=== PATIENT | male | born 1975 | race Hispanic/Latino ===

== ENCOUNTER 2024-08-12 20:36 | Emergency (ER) | payer MEDICAID ==
[2024-08-12 22:34] LABS: ALT (SGPT) 28 U/L (8-55); AST (SGOT) 55 U/L (5-34); Alkaline Phosphatase 172 U/L (40-110); Anion Gap 10 mmol/L (10-20); BUN (Urea Nitrogen) 13 mg/dL (8.9-20.6); Bilirubin, Total 2.8 mg/dL (0.2-1.2); CRP,High Sensitivity (Inhouse) 2.22 mg/dL (< or = 0.5); Calc. Creatinine Clearance 0 mL/min (70-130); Calcium 8.1 mg/dL (7.8-10.44); Carbon Dioxide 17 mmol/L (22-29); Chloride 108 mmol/L (98-107); Estimated GFR 106; Globulin 3.3 g/dL (2.4-3.5); Glucose 110 mg/dL (70-105); Potassium 3.9 mmol/L (3.5-5.1); Protein, Total 6.3 g/dL (6.0-8.3); Sodium 131 mmol/L (136-145)
[2024-08-12 22:45] LABS: #Basophils Less than 0.03 10x3/uL (0.0-0.2); %Eosinophils 0.9 % (0.0-10.0); %Lymphocytes 6.5 % (21.0-51.0); %Monocytes 8.3 % (0.0-10.0); %Neutrophils 84.1 % (42.0-75.0); Hematocrit 28.7 % (42.0-52.0); Hemoglobin 8.8 g/dL (14.0-18.0); Mean Corpuscular HGB CONC 30.7 g/dL (32.0-36.0); Mean Corpuscular Hemoglobin 23.3 pg (27.0-31.0); Mean Corpuscular Volume 75.9 fL (78.0-98.0); Platelet Count 45 10x3/uL (130-400); RBC Distribution Width 18.3 % (11.5-14.5); Red Blood Cell (RBC) Count 3.78 mill/uL (4.70-6.10)
[2024-08-12 23:06] LABS: Anisocytosis SLIGHT = 6-15 cells HPF (0-5); Elliptocytes SLIGHT = 2-5 cells HPF (0-1); Hypochromia SLIGHT = 6-15 cells HPF (0-5); Microcytosis SLIGHT = 6-15 cells HPF (0-5); Platelet Adequacy Comment Significant Decrease; Polychromasia SLIGHT = 2-3 cells HPF (0-2); Target Cells SLIGHT = 2-5 cells HPF (0-1)
[2024-08-13] MEDS ORDERED: Acetaminophen 500 MG TAB ONE (01:06)
[2024-08-13] MEDS ORDERED: Acetaminophen/Codeine 30-300mg Tablet ONE (01:51)
[2024-08-13] MEDS ORDERED: Ketorolac Tromethamine 30 MG (1 mL) VIAL ONE (01:51)
[2024-08-13] MEDS ORDERED: Doxycycline 100 MG CAP ONE (02:02)
== END 2024-08-13 02:28 | disposition home or self-care (01) ==
LOC: ERS 20:36
DX: L03.115 Cellulitis of right lower limb (principal); R60.9 Edema, unspecified; Z75.8 Other problems related to medical facilities and other health care; Z87.891 Personal history of nicotine dependence
CPT/HCPCS: 36415; 80053; 83605; 85025; 86141; 87040; 87428; 96372; J1885

== ENCOUNTER 2024-08-17 17:54 | Emergency (ER) | payer MEDICAID, OTHER ==
[2024-08-17 18:44] LABS: #Basophils Less than 0.03 10x3/uL (0.0-0.2); %Basophils 0.4 % (0.0-1.0); %Eosinophils 8.8 % (0.0-10.0); %Monocytes 13.6 % (0.0-10.0); %Neutrophils 54.8 % (42.0-75.0); Hematocrit 27.5 % (42.0-52.0); Hemoglobin 8.4 g/dL (14.0-18.0); Mean Corpuscular HGB CONC 30.5 g/dL (32.0-36.0); Mean Corpuscular Hemoglobin 23.4 pg (27.0-31.0); Mean Corpuscular Volume 76.6 fL (78.0-98.0); Platelet Count 49 10x3/uL (130-400); RBC Distribution Width 18.6 % (11.5-14.5); Red Blood Cell (RBC) Count 3.59 mill/uL (4.70-6.10)
[2024-08-17 18:56] LABS: ALT (SGPT) 25 U/L (8-55); AST (SGOT) 47 U/L (5-34); Albumin 3.1 g/dL (3.5-5.0); Alkaline Phosphatase 166 U/L (40-110); Anion Gap 11 mmol/L (10-20); BUN (Urea Nitrogen) 9 mg/dL (8.9-20.6); Bilirubin, Total 2.2 mg/dL (0.2-1.2); Calc. Creatinine Clearance 0 mL/min (70-130); Calcium 8.3 mg/dL (7.8-10.44); Carbon Dioxide 21 mmol/L (22-29); Chloride 108 mmol/L (98-107); Estimated GFR 106; Globulin 3.7 g/dL (2.4-3.5); Glucose 114 mg/dL (70-105); Potassium 3.9 mmol/L (3.5-5.1); Protein, Total 6.8 g/dL (6.0-8.3); Sodium 136 mmol/L (136-145)
== END 2024-08-17 21:06 | disposition home or self-care (01) ==
LOC: ERS 17:54
DX: L03.116 Cellulitis of left lower limb (principal); Z79.899 Other long term (current) drug therapy
CPT/HCPCS: 36415; 80053; 83605; 85025; 99283

== ENCOUNTER 2024-08-25 16:15 | Inpatient (IN) | payer OTHER ==
[~2024-08-25 16:15] MED LIST: Iopamidol-370 76% 500 ML MDV (1 ML CHARGE) ONE
[2024-08-25 18:22] LABS: #Basophils Less than 0.03 10x3/uL (0.0-0.2); %Basophils 0.3 % (0.0-1.0); %Eosinophils 7.5 % (0.0-10.0); %Monocytes 11.1 % (0.0-10.0); %Neutrophils 61.8 % (42.0-75.0); Hematocrit 28.7 % (42.0-52.0); Hemoglobin 8.8 g/dL (14.0-18.0); Mean Corpuscular HGB CONC 30.7 g/dL (32.0-36.0); Mean Corpuscular Hemoglobin 23.3 pg (27.0-31.0); Mean Corpuscular Volume 75.9 fL (78.0-98.0); Mean Platelet Volume 10.1 fL (7.4-10.4); Platelet Count 66 10x3/uL (130-400); RBC Distribution Width 18.7 % (11.5-14.5); Red Blood Cell (RBC) Count 3.78 mill/uL (4.70-6.10)
[2024-08-25 18:29] LABS: ALT (SGPT) 21 U/L (8-55); AST (SGOT) 55 U/L (5-34); Albumin 3.1 g/dL (3.5-5.0); Alkaline Phosphatase 170 U/L (40-110); Anion Gap 12 mmol/L (10-20); BUN (Urea Nitrogen) 12 mg/dL (8.9-20.6); Bilirubin, Total 2.4 mg/dL (0.2-1.2); Calc. Creatinine Clearance 0 mL/min (70-130); Carbon Dioxide 24 mmol/L (22-29); Chloride 105 mmol/L (98-107); Estimated GFR 98; Globulin 3.6 g/dL (2.4-3.5); Glucose 105 mg/dL (70-105); Protein, Total 6.7 g/dL (6.0-8.3); Sodium 137 mmol/L (136-145)
[2024-08-25] MEDS ORDERED: Cefepime 2 GM VIAL ONE (20:04)
[2024-08-25] MEDS ORDERED: Ondansetron PF 4 MG/2 ML Vial IVP PRN (23:00)
[2024-08-25] MEDS ORDERED: Acetaminophen 325 MG TAB PO PRN (23:00)
[2024-08-25] MEDS ORDERED: Ondansetron ODT 4 MG TAB SL PRN (23:00)
[2024-08-25 23:08] VITALS: BMI 34.3
[2024-08-25] MEDS: Vancomycin (BATCH) 2.5 GM in Premix 1 BAG IVPB SCH (23:59)
[2024-08-26] MEDS: cefTRIAXone\\ROCEPHIN 1 GM in Sodium Chloride 0.9% 100 ML IVPB SCH (01:42)
[2024-08-26] MEDS: FLU (Fluarix Triv) TS24-25(6MOS UP)/PF 45 MCG/0.5 ML Syringe IM ONE (01:58)
[2024-08-26 05:22] LABS: Vancomycin, Random 19.7 ug/mL (See Comment)
[2024-08-26] MEDS ORDERED: Vancomycin 1.5 GM in Sodium Chloride 0.9% 250 ML 300 ML IVPB SCH (09:00)
[2024-08-26] MEDS: Rifaximin 550 MG TAB PO SCH (10:17)
[2024-08-26] MEDS: Lactulose 20 GM (30 mL) UDCUP PO SCH (10:17)
[2024-08-26] MEDS: Carvedilol 6.25 MG TAB PO SCH (10:17)
[2024-08-26] MEDS: Multivitamin w/Zinc Stress 1 TAB PO SCH (10:18)
[2024-08-26] MEDS: Folic Acid 1 MG TAB PO SCH (10:18)
[2024-08-26] MEDS: Pantoprazole DR 40 MG TAB PO SCH (10:18)
[2024-08-26] MEDS: Vancomycin (BATCH) 1.5 GM in Premix 1 BAG IVPB SCH (10:19)
[2024-08-26] MEDS: traMADol HCl 50 MG TAB PO PRN (11:01)
[2024-08-27 05:24] LABS: Anion Gap 10 mmol/L (10-20); BUN (Urea Nitrogen) 9 mg/dL (8.9-20.6); Calc. Creatinine Clearance 177 mL/min (70-130); Carbon Dioxide 23 mmol/L (22-29); Chloride 108 mmol/L (98-107); Estimated GFR 112; Glucose 87 mg/dL (70-105); Potassium 3.9 mmol/L (3.5-5.1); Sodium 137 mmol/L (136-145)
[2024-08-27 05:27] LABS: #Basophils Less than 0.03 10x3/uL (0.0-0.2); %Basophils 0.5 % (0.0-1.0); %Eosinophils 8.3 % (0.0-10.0); %Lymphocytes 27.3 % (21.0-51.0); %Neutrophils 51.4 % (42.0-75.0); Hematocrit 25.6 % (42.0-52.0); Hemoglobin 8.1 g/dL (14.0-18.0); Mean Corpuscular HGB CONC 31.6 g/dL (32.0-36.0); Mean Corpuscular Hemoglobin 23.4 pg (27.0-31.0); Platelet Count 57 10x3/uL (130-400); RBC Distribution Width 18.8 % (11.5-14.5); Red Blood Cell (RBC) Count 3.46 mill/uL (4.70-6.10)
[2024-08-27] MEDS: Furosemide 40 MG (4 mL) VIAL SLOW IVP SCH (16:17)
[2024-08-28 05:32] LABS: Vancomycin, Random 19.2 ug/mL (See Comment)
[2024-08-28 05:33] LABS: #Basophils Less than 0.03 10x3/uL (0.0-0.2); %Eosinophils 7.2 % (0.0-10.0); %Lymphocytes 24.5 % (21.0-51.0); %Monocytes 12.4 % (0.0-10.0); %Neutrophils 55.9 % (42.0-75.0); Anion Gap 10 mmol/L (10-20); BUN (Urea Nitrogen) 11 mg/dL (8.9-20.6); Calc. Creatinine Clearance 160 mL/min (70-130); Calcium 8.3 mg/dL (7.8-10.44); Carbon Dioxide 24 mmol/L (22-29); Chloride 106 mmol/L (98-107); Estimated GFR 108; Glucose 98 mg/dL (70-105); Hematocrit 27.3 % (42.0-52.0); Hemoglobin 8.7 g/dL (14.0-18.0); Mean Corpuscular HGB CONC 31.9 g/dL (32.0-36.0); Mean Corpuscular Hemoglobin 23.4 pg (27.0-31.0); Mean Corpuscular Volume 73.4 fL (78.0-98.0); Platelet Count 62 10x3/uL (130-400); Potassium 3.7 mmol/L (3.5-5.1); RBC Distribution Width 19.1 % (11.5-14.5); Red Blood Cell (RBC) Count 3.72 mill/uL (4.70-6.10); Sodium 136 mmol/L (136-145)
[2024-08-28] MEDS: cefTRIAXone\\ROCEPHIN 1 GM in Sodium Chloride 0.9% 100 ML IVPB SCH (10:01)
[2024-08-28 13:22] VITALS: BP 128/78; TEMP 97.6
== END 2024-08-28 16:34 | disposition home or self-care (01) | DRG 603 ==
LOC: ERS 16:15 → SURG B 22:07 → OBSVTOIN 08-26 12:31
PROVIDERS: ADMIT Student in an Organized Health Care Education/Training Program; ATTEND Internal Medicine
DX: L03.116 Cellulitis of left lower limb (principal); D61.818 Other pancytopenia; I10 Essential (primary) hypertension; K74.60 Unspecified cirrhosis of liver; Z79.899 Other long term (current) drug therapy
CPT/HCPCS: 36415; 80048; 80053; 80202; 82550; 82565; 83605; 85025; 86141; 87040; 96365; 96367; 96375; 96376; G0378; J0692; J0696; J1940; J3370; Q9967

== ENCOUNTER 2024-10-09 12:15 | Emergency (ER) | payer OTHER ==
[2024-10-09 13:06] LABS: #Basophils Less than 0.03 10x3/uL (0.0-0.2); %Basophils 0.4 % (0.0-1.0); %Eosinophils 7.6 % (0.0-10.0); %Lymphocytes 21.2 % (21.0-51.0); %Monocytes 10.8 % (0.0-10.0); Hematocrit 29.8 % (42.0-52.0); Hemoglobin 9.3 g/dL (14.0-18.0); Mean Corpuscular HGB CONC 31.2 g/dL (32.0-36.0); Mean Corpuscular Hemoglobin 22.7 pg (27.0-31.0); Mean Corpuscular Volume 72.9 fL (78.0-98.0); Platelet Count 54 10x3/uL (130-400); RBC Distribution Width 20.1 % (11.5-14.5); Red Blood Cell (RBC) Count 4.09 mill/uL (4.70-6.10)
[2024-10-09 13:15] LABS: ALT (SGPT) 23 U/L (8-55); AST (SGOT) 54 U/L (5-34); Albumin 3.2 g/dL (3.5-5.0); Alkaline Phosphatase 204 U/L (40-110); Anion Gap 11 mmol/L (10-20); BUN (Urea Nitrogen) 11 mg/dL (8.9-20.6); Bilirubin, Total 1.6 mg/dL (0.2-1.2); Calc. Creatinine Clearance 0 mL/min (70-130); Calcium 8.4 mg/dL (7.8-10.44); Carbon Dioxide 25 mmol/L (22-29); Chloride 106 mmol/L (98-107); Estimated GFR 105; Globulin 4.2 g/dL (2.4-3.5); Glucose 140 mg/dL (70-105); Protein, Total 7.4 g/dL (6.0-8.3); Sodium 138 mmol/L (136-145)
[2024-10-09 13:33] LABS: Anisocytosis MODERATE=16-30 cells HPF (0-5); Hypochromia SLIGHT = 6-15 cells HPF (0-5); Microcytosis SLIGHT = 6-15 cells HPF (0-5); Ovalocytes SLIGHT = 2-5 cells HPF (0-1); Platelet Adequacy Comment Significant Decrease; Polychromasia MODERATE = 3-4 cells HPF (0-2)
== END 2024-10-09 13:31 | disposition home or self-care (01) ==
LOC: ERS 12:15
DX: L97.229 Non-pressure chronic ulcer of left calf with unspecified severity (principal)
CPT/HCPCS: 36415; 80053; 85025; 99282

== ENCOUNTER 2025-07-30 12:42 | Inpatient (IN) | payer OTHER ==
[2025-07-30 14:57] LABS: #Basophils Less than 0.03 10x3/uL (0.0-0.2); #Eosinophils 0.20 10x3/uL (0.0-0.7); #Monocytes 0.40 10x3/uL (0.11-0.59); #Neutrophils 2.07 10x3/uL (1.40-6.50); %Basophils 0.3 % (0.0-1.0); %Eosinophils 6.3 % (0.0-10.0); %Lymphocytes 15.4 % (21.0-51.0); %Monocytes 12.6 % (0.0-10.0); %Neutrophils 65.1 % (42.0-75.0); Hematocrit 35.5 % (42.0-52.0); Hemoglobin 11.4 g/dL (14.0-18.0); Mean Corpuscular Hemoglobin 27.2 pg (27.0-31.0); Mean Corpuscular Volume 84.7 fL (78.0-98.0); Platelet Count 53 10x3/uL (130-400); Red Blood Cell (RBC) Count 4.19 mill/uL (4.70-6.10); White Blood Cell (WBC) Count 3.18 10x3/uL (4.8-10.8)
[2025-07-30 15:17] LABS: ALT (SGPT) 33 U/L (Less than 45); AST (SGOT) 72 U/L (11-34); Albumin 3.2 g/dL (3.1-4.5); Alkaline Phosphatase 169 U/L (40-110); Anion Gap 10 mmol/L (10-20); BUN (Urea Nitrogen) 8 mg/dL (8.9-20.6); Bilirubin, Total 3.1 mg/dL (0.3-1.2); Calc. Creatinine Clearance 0 mL/min (70-130); Calcium 8.6 mg/dL (7.8-10.44); Carbon Dioxide 25 mmol/L (22-29); Chloride 106 mmol/L (98-107); Globulin 3.9 g/dL (2.4-3.5); Glucose 103 mg/dL (70-105); Potassium 4.3 mmol/L (3.5-5.1); Sodium 137 mmol/L (136-145)
[2025-07-30] MEDS ORDERED: Ondansetron PF 4 MG/2 ML Vial ONE (15:41)
[2025-07-30] MEDS ORDERED: VANCOMYCIN 2 GRAM/400 ML BAG ONE (15:43)
[2025-07-30] MEDS: cefTRIAXone\\ROCEPHIN 2 GM in Sodium Chloride 0.9% 100 ML IVPB SCH (20:59)
[2025-07-30] MEDS: Carvedilol 6.25 MG TAB PO SCH (21:46)
[2025-07-30] MEDS: Lactulose 20 GM (30 mL) UDCUP PO SCH (21:46)
[2025-07-30] MEDS: Non-Formulary Item 1 EACH (Lactulose 10 Gm/15ml Oral Sol 10 GM/15 ML Ml) PO SCH (22:37)
[2025-07-30 23:38] VITALS: BMI 40.0
[2025-07-31] MEDS ORDERED: FLU (Fluarix Triv) 25-26 (6MOS UP)/PF 45 MCG/0.5 ML Syringe IM ONE (09:00)
[2025-07-31] MEDS ORDERED: PNEUMOC 20-VAL CONJ-DIP CRM/PF 0.5 ML SYRINGE IM ONE (09:00)
[2025-07-31] MEDS ORDERED: VANCOMYCIN IVPB PRN (09:31)
[2025-07-31] MEDS: Vancomycin 1.5 GM / NS 500 ML VIAL-2-BAG IVPB SCH (10:16)
[2025-07-31] MEDS: Lactulose 20 GM (30 mL) UDCUP PO SCH (10:18)
[2025-07-31] MEDS: Pantoprazole 40 MG DR.TAB PO SCH (10:20)
[2025-07-31] MEDS: Carvedilol 6.25 MG TAB PO SCH (10:20)
[2025-07-31] MEDS: Folic Acid 1 MG TAB PO SCH (10:20)
[2025-07-31] MEDS: Vancomycin 1 GM in Premix 1 BAG IVPB SCH (10:44)
[2025-07-31 10:45] LABS: #Basophils Less than 0.03 10x3/uL (0.0-0.2); #Eosinophils 0.19 10x3/uL (0.0-0.7); #Monocytes 0.27 10x3/uL (0.11-0.59); #Neutrophils 2.08 10x3/uL (1.40-6.50); %Basophils 0.3 % (0.0-1.0); %Eosinophils 6.4 % (0.0-10.0); %Lymphocytes 14.1 % (21.0-51.0); %Monocytes 9.1 % (0.0-10.0); %Neutrophils 69.8 % (42.0-75.0); Hematocrit 36.3 % (42.0-52.0); Hemoglobin 11.5 g/dL (14.0-18.0); Mean Corpuscular Hemoglobin 27.0 pg (27.0-31.0); Mean Corpuscular Volume 85.2 fL (78.0-98.0); Platelet Count 55 10x3/uL (130-400); Red Blood Cell (RBC) Count 4.26 mill/uL (4.70-6.10); White Blood Cell (WBC) Count 2.98 10x3/uL (4.8-10.8)
[2025-07-31 10:48] LABS: INR-International Normal Ratio 1.5; Prothrombin Time 18.1 sec (12.0-14.7)
[2025-07-31 11:06] LABS: Anion Gap 9 mmol/L (10-20); BUN (Urea Nitrogen) 8 mg/dL (8.9-20.6); Calc. Creatinine Clearance 185 mL/min (70-130); Calcium 8.6 mg/dL (7.8-10.44); Carbon Dioxide 24 mmol/L (22-29); Chloride 106 mmol/L (98-107); Glucose 159 mg/dL (70-105); Potassium 4.3 mmol/L (3.5-5.1); Sodium 135 mmol/L (136-145)
[2025-07-31 11:24] LABS: Anisocytosis SLIGHT = 6-15 cells HPF (0-5); Platelet Adequacy Comment Platelets Decreased; Polychromasia SLIGHT = 2-3 cells HPF (0-2)
[2025-07-31] MEDS: Gabapentin 100 MG CAP PO SCH (19:37)
[2025-08-01] MEDS ORDERED: Iopamidol-370 76% 500 ML MDV (1 ML CHARGE) ONE (12:00)
[2025-08-01 15:28] LABS: #Basophils Less than 0.03 10x3/uL (0.0-0.2); #Eosinophils 0.26 10x3/uL (0.0-0.7); #Monocytes 0.41 10x3/uL (0.11-0.59); #Neutrophils 1.88 10x3/uL (1.40-6.50); %Basophils 0.3 % (0.0-1.0); %Eosinophils 8.4 % (0.0-10.0); %Lymphocytes 17.7 % (21.0-51.0); %Monocytes 13.2 % (0.0-10.0); %Neutrophils 60.4 % (42.0-75.0); Hematocrit 36.0 % (42.0-52.0); Hemoglobin 11.6 g/dL (14.0-18.0); Mean Corpuscular Hemoglobin 27.4 pg (27.0-31.0); Mean Corpuscular Volume 84.9 fL (78.0-98.0); Platelet Count 59 10x3/uL (130-400); Red Blood Cell (RBC) Count 4.24 mill/uL (4.70-6.10); White Blood Cell (WBC) Count 3.11 10x3/uL (4.8-10.8)
[2025-08-01 15:46] LABS: Anion Gap 9 mmol/L (10-20); BUN (Urea Nitrogen) 8 mg/dL (8.9-20.6); Calc. Creatinine Clearance 198 mL/min (70-130); Calcium 8.4 mg/dL (7.8-10.44); Carbon Dioxide 26 mmol/L (22-29); Chloride 106 mmol/L (98-107); Glucose 128 mg/dL (70-105); Potassium 4.6 mmol/L (3.5-5.1); Sodium 136 mmol/L (136-145); Vancomycin, Random 18.1 ug/mL (See Comment)
[2025-08-01] MEDS: Melatonin 3 MG TAB PO PRN (20:39)
[2025-08-02 07:48] LABS: Hematocrit 36.9 % (42.0-52.0); Hemoglobin 11.8 g/dL (14.0-18.0); Mean Corpuscular Hemoglobin 26.9 pg (27.0-31.0); Mean Corpuscular Volume 84.2 fL (78.0-98.0); Platelet Count 61 10x3/uL (130-400); Red Blood Cell (RBC) Count 4.38 mill/uL (4.70-6.10); White Blood Cell (WBC) Count 3.14 10x3/uL (4.8-10.8)
[2025-08-02 07:51] LABS: Anion Gap 10 mmol/L (10-20); BUN (Urea Nitrogen) 8 mg/dL (8.9-20.6); Calc. Creatinine Clearance 180 mL/min (70-130); Calcium 8.4 mg/dL (7.8-10.44); Carbon Dioxide 27 mmol/L (22-29); Chloride 104 mmol/L (98-107); Glucose 96 mg/dL (70-105); Potassium 4.3 mmol/L (3.5-5.1); Sodium 137 mmol/L (136-145)
[2025-08-02 08:16] LABS: Anisocytosis MODERATE=16-30 cells HPF (0-5); Macrocytosis SLIGHT = 6-15 cells HPF (0-5); Platelet Adequacy Comment Significant Decrease; Polychromasia SLIGHT = 2-3 cells HPF (0-2); RBC Morphology Within Normal Limits
[2025-08-02 08:29] LABS: #Basophils Less than 0.03 10x3/uL (0.0-0.2); #Eosinophils 0.28 10x3/uL (0.0-0.7); #Monocytes 0.38 10x3/uL (0.11-0.59); #Neutrophils 2.00 10x3/uL (1.40-6.50); %Basophils 0.3 % (0.0-1.0); %Eosinophils 8.6 % (0.0-10.0); %Lymphocytes 19.8 % (21.0-51.0); %Monocytes 11.4 % (0.0-10.0); %Neutrophils 59.8 % (42.0-75.0)
[2025-08-02] MEDS: Simethicone Chewable 80 MG TAB PO PRN (22:52)
[2025-08-03 06:02] LABS: Anion Gap 9 mmol/L (10-20); BUN (Urea Nitrogen) 9 mg/dL (8.9-20.6); Calc. Creatinine Clearance 193 mL/min (70-130); Calcium 8.4 mg/dL (7.8-10.44); Carbon Dioxide 27 mmol/L (22-29); Chloride 106 mmol/L (98-107); Glucose 97 mg/dL (70-105); Potassium 4.1 mmol/L (3.5-5.1); Sodium 138 mmol/L (136-145); Vancomycin, Random 14.2 ug/mL (See Comment)
[2025-08-06 06:33] LABS: Vancomycin, Random 16.9 ug/mL (See Comment)
[2025-08-06 06:35] LABS: Calc. Creatinine Clearance 193.0 mL/min (70-130)
[2025-08-06 15:08] VITALS: BP 117/82; TEMP 97.8
== END 2025-08-06 14:21 | disposition home or self-care (01) | DRG 603 ==
LOC: ERS 12:42 → T4-B 17:18
PROVIDERS: ADMIT Internal Medicine; ATTEND Family Medicine
DX: L03.116 Cellulitis of left lower limb (principal); D61.818 Other pancytopenia; I10 Essential (primary) hypertension; D69.6 Thrombocytopenia, unspecified; R74.01 Elevation of levels of liver transaminase levels; K76.0 Fatty (change of) liver, not elsewhere classified; K74.69 Other cirrhosis of liver; I89.0 Lymphedema, not elsewhere classified
CPT/HCPCS: 36415; 76705; 80048; 80053; 80202; 82565; 83605; 85025; 85610; 86141; 87040; 87081; 96365; 96366; 96375; J0692; J0696; J2270; J2405; J3375; J7030; Q9967

== ENCOUNTER 2025-08-12 08:03 | Outpatient (CLI) | payer OTHER | END 2025-08-12 08:04 | disposition home or self-care (01) | LOC: ULT 08:03 | PROVIDERS: ATTEND Physician Assistant Medical | DX: K74.60 Unspecified cirrhosis of liver (principal); R16.1 Splenomegaly, not elsewhere classified | CPT/HCPCS: 76705 ==